=== PATIENT | male | born 1955 | race African-American/Black ===

== ENCOUNTER 2017-07-13 08:00 | Day surgery (SDC) | payer OTHER ==
[2017-07-14] MEDS ORDERED: HIP PAIN COCKTAIL (CEFUROXIME) INJ ×2 (07:30)
== END 2017-07-14 10:00 | disposition home or self-care (01) ==
LOC: REC 07-14 08:32 → SDS 07-14 10:00 → LAB 08:00 → SDS 07-14 10:00 → LAB 10:00
DX: M16.12 Unilateral primary osteoarthritis, left hip (principal); Z01.818 Encounter for other preprocedural examination (principal); Z53.9 Procedure and treatment not carried out, unspecified reason
CPT/HCPCS: 87081

== ENCOUNTER 2017-08-26 05:25 | Inpatient (IN) | payer OTHER ==
[2017-08-26] MEDS: LANSOPRAZOLE 30 MG CAP PO (06:19)
[2017-08-26] MEDS: DEXAMETHASONE 4 MG/ML 1 ML INJ IV (06:19)
[2017-08-26] MEDS: ONDANSETRON 4 MG INJ IV ×5 (06:19→20:51)
[2017-08-26] MEDS: ACETAMINOPHEN 1000MG/100ML IV 100 ML IVPB (06:19)
[2017-08-26] MEDS: oxyCODONE (CR) 10 MG TAB [oxyCONTIN] PO (06:20)
[2017-08-26] MEDS: LACTATED RINGER'S 1,000 ML IV* (06:20)
[2017-08-26] MEDS ORDERED: ROCURONIUM 50 MG INJ (07:37)
[2017-08-26] MEDS ORDERED: NEOSTIGMINE 3 MG/3 ML SYRINGE ×2 (07:37→10:28)
[2017-08-26] MEDS ORDERED: PROPOFOL 20 ML (07:37)
[2017-08-26] MEDS ORDERED: SUCCINYLCHOLINE CHLORIDE 100 MG/5 ML SYG IV (07:37)
[2017-08-26] MEDS ORDERED: LIDOCAINE 2% (SDV) 5 ML INJ (07:37)
[2017-08-26] MEDS ORDERED: GLYCOPYRROLATE 0.4 MG INJ ×3 (07:37→10:28)
[2017-08-26] MEDS ORDERED: MEPERIDINE 100 MG INJ (07:37)
[2017-08-26] MEDS ORDERED: BUPIVACAINE 0.75%/DEXT (SPINAL) 2 ML INJ (07:38)
[2017-08-26] MEDS ORDERED: morphine SULFATE/PF (10 MG/10 ML) INJ (07:38)
[2017-08-26] MEDS: TRANEXAMIC ACID 1,000 MG in NS 100 ML INTRA-OP X1 IVPB (07:45)
[2017-08-26] MEDS: CEFAZOLIN 2 GM/50 ML (PMX) 50 ML IVPB (07:58)
[2017-08-26] MEDS: TRANEXAMIC ACID 1,000 MG in NS 100 ML PRE-OP X1 IVPB ×2 (08:20→08:47)
[2017-08-26] MEDS: BACITRACIN 50000 UNITS INJ (08:42)
[2017-08-26] MEDS: POLYMYXIN B 500000 UNIT INJ (08:42)
[2017-08-26] MEDS: HIP PAIN COCKTAIL (CEFUROXIME) INJ (08:44)
[2017-08-26] MEDS ORDERED: FENTAnyl 50 MCG/ML VIAL (09:42)
[2017-08-26] MEDS ORDERED: CEFAZOLIN 1 GM INJ (10:36)
[2017-08-26] MEDS: SOD CHLORIDE 0.9% 1,000 ML IV ×2 (10:55→20:53)
[2017-08-26] MEDS ORDERED: ZOLPIDEM 5 MG TAB PO (11:00)
[2017-08-26] MEDS ORDERED: MAGNESIUM HYDROXIDE 30ML CUP PO (11:00)
[2017-08-26] MEDS ORDERED: NACL 0.9% 3 ML SYG IV (11:00)
[2017-08-26] MEDS ORDERED: oxyCODONE 5 MG TAB PO ×3 (11:00)
[2017-08-26] MEDS ORDERED: NALOXONE (0.4 MG/ML) INJ IV ×2 (11:00→11:30)
[2017-08-26] MEDS ORDERED: DIPHENHYDRAMINE 50 MG INJ IV ×2 (11:00→11:30)
[2017-08-26] MEDS ORDERED: TRIMETHOBENZAMIDE 100 MG/ML VIAL IM (11:00)
[2017-08-26] MEDS ORDERED: BISACODYL 10 MG SUPP PR (11:00)
[2017-08-26] MEDS ORDERED: NA PHOSPHATE/BIPHOS 133 ML ENEMA PR (11:00)
[2017-08-26] MEDS ORDERED: HYDROmorphONE 0.5 MG/0.5 ML SYG IV ×2 (11:30)
[2017-08-26] MEDS: ASPIRIN (EC) 325 MG TAB PO ×2 (11:53→20:42)
[2017-08-26] MEDS: DOCUSATE SODIUM 100 MG CAP PO (11:53)
[2017-08-26] MEDS: CEFAZOLIN 1 GM/50 ML (PMX) 50 ML IVPB ×2 (14:48→20:52)
[2017-08-26] MEDS ORDERED: LEVALBUTEROL (HFA) 15 GM INHALER INH (20:30)
[2017-08-26] MEDS: ATORVASTATIN 10 MG TAB PO (20:52)
[2017-08-27] MEDS: PANTOPRAZOLE (EC) 40 MG TAB PO (05:07)
[2017-08-27 05:08] LABS: ADD MAN DIFF? NO
[2017-08-27] MEDS: CEFAZOLIN 1 GM/50 ML (PMX) 50 ML IVPB (05:08)
[2017-08-27] MEDS: ONDANSETRON 4 MG INJ IV (05:08)
[2017-08-27 05:09] LABS: WHITE BLOOD COUNT 9.5 10^3/ul (4.8-10.8)
[2017-08-27 05:09] LABS: ABNORMAL IP MESSAGE 1; BASOPHILS % 0.1 % (0.0-2.0); HEMATOCRIT 34.8 % (42.0-52.0); HEMOGLOBIN 11.3 g/dl (14.0-18.0); LYMPHOCYTES # 0.6 10^3/ul (0.8-2.9); LYMPHOCYTES % 6.1 % (15.0-51.0); MEAN CORPUSCULAR HEMOGLOBIN 31.1 pg (29.0-33.0); MEAN CORPUSCULAR HGB CONC 32.5 g/dl (32.0-37.0); MEAN CORPUSCULAR VOLUME 95.9 fl (82.0-101.0); MEAN PLATELET VOLUME 10.1 fl (7.4-10.4); MONOCYTE # 0.6 10^3/ul (0.3-0.9); MONOCYTES % 6.6 % (0.0-11.0); NEUTROPHIL # 8.2 10^3/ul (1.6-7.5); NEUTROPHILS % 86.9 % (39.0-77.0); PLATELET COUNT 183 10^3/UL (140-415); POSITIVE DIFF @See below; RED BLOOD COUNT 3.63 10^6/ul (4.70-6.10); RED CELL DISTRIBUTION WIDTH 13.2 % (11.5-14.5)
[2017-08-27 05:19] LABS: HEMOGLOBIN A1C 5.7 % (0-5.9)
[2017-08-27 05:33] LABS: ALANINE AMINOTRANSFERASE 33 IU/L (13-69); ALBUMIN 3.8 g/dl (3.3-4.9); ALKALINE PHOSPHATASE 49 IU/L (42-121); ASPARTATE AMINO TRANSFERASE 55 IU/L (15-46); BILIRUBIN,INDIRECT 0.6 mg/dl (0-1.1); BILIRUBIN,TOTAL 0.6 mg/dl (0.2-1.3); MAGNESIUM 1.6 mg/dl (1.7-2.5); TOTAL PROTEIN 6.7 g/dl (6.1-8.1)
[2017-08-27 05:35] LABS: ANION GAP 15 (8-16); BLOOD UREA NITROGEN 22 mg/dl (7-20); CALCIUM 8.4 mg/dl (8.4-10.2); CARBON DIOXIDE 29 mmol/L (21-31); CHLORIDE 103 mmol/L (97-110); CREATININE 0.87 mg/dl (0.61-1.24); GLUCOSE 147 mg/dl (70-220); POTASSIUM 4.2 mmol/L (3.5-5.1); SODIUM 143 mmol/L (135-144)
[2017-08-27] MEDS ORDERED: PANTOPRAZOLE (EC) 40 MG TAB PO (06:00)
[2017-08-27] MEDS ORDERED: ZOLPIDEM 5 MG TAB PO (07:22)
[2017-08-27] MEDS ORDERED: TRIMETHOBENZAMIDE 100 MG/ML VIAL IM (07:22)
[2017-08-27] MEDS ORDERED: oxyCODONE 5 MG TAB PO ×2 (07:22)
[2017-08-27] MEDS ORDERED: DIPHENHYDRAMINE 50 MG INJ IV (07:22)
[2017-08-27] MEDS: FERROUS FUMARATE (SR) TAB PO ×2 (08:55→21:53)
[2017-08-27] MEDS: FLUTICASONE 0.05% 16 GM NAS SPRAY NASAL (08:55)
[2017-08-27] MEDS: ASPIRIN (EC) 325 MG TAB PO ×2 (08:56→21:54)
[2017-08-27] MEDS: LISINOPRIL 5 MG TAB PO (08:56)
[2017-08-27] MEDS: TRIAMTERENE/HCTZ (37.5/25) TAB PO (08:57)
[2017-08-27] MEDS: DOCUSATE SODIUM 100 MG CAP PO ×2 (08:57→21:53)
[2017-08-27] MEDS: CELECOXIB 200 MG CAP PO ×2 (08:58→21:53)
[2017-08-27] MEDS: oxyCODONE 5 MG TAB PO (08:58)
[2017-08-27] MEDS: BETHANECHOL 25 MG TAB PO (08:58)
[2017-08-27] MEDS: CHOLECALCIFEROL 1,000 UNIT TAB PO (08:59)
[2017-08-27] MEDS: SOD CHLORIDE 0.9% 1,000 ML IV (11:55)
[2017-08-27] MEDS: MAGNESIUM SULFATE 2 GM/50 ML 50 ML IVPB (16:04)
[2017-08-27] MEDS: ATORVASTATIN 10 MG TAB PO (21:53)
[2017-08-28] MEDS: SOD CHLORIDE 0.9% 1,000 ML IV ×2 (00:07→12:55)
[2017-08-28 05:37] LABS: WHITE BLOOD COUNT 8.3 10^3/ul (4.8-10.8)
[2017-08-28 05:37] LABS: ADD MAN DIFF? NO; BASOPHILS % 0.2 % (0.0-2.0); EOSINOPHILS % 0.1 % (0.0-7.0); HEMATOCRIT 30.9 % (42.0-52.0); LYMPHOCYTES # 1.4 10^3/ul (0.8-2.9); LYMPHOCYTES % 16.4 % (15.0-51.0); MEAN CORPUSCULAR HEMOGLOBIN 30.8 pg (29.0-33.0); MEAN CORPUSCULAR HGB CONC 32.4 g/dl (32.0-37.0); MEAN CORPUSCULAR VOLUME 95.1 fl (82.0-101.0); MEAN PLATELET VOLUME 10.2 fl (7.4-10.4); MONOCYTE # 0.7 10^3/ul (0.3-0.9); MONOCYTES % 7.9 % (0.0-11.0); NEUTROPHIL # 6.2 10^3/ul (1.6-7.5); NEUTROPHILS % 74.9 % (39.0-77.0); PLATELET COUNT 173 10^3/UL (140-415); RED BLOOD COUNT 3.25 10^6/ul (4.70-6.10); RED CELL DISTRIBUTION WIDTH 13.3 % (11.5-14.5)
[2017-08-28] MEDS: PANTOPRAZOLE (EC) 40 MG TAB PO (06:08)
[2017-08-28 06:20] LABS: ANION GAP 10 (8-16); BLOOD UREA NITROGEN 18 mg/dl (7-20); CALCIUM 8.3 mg/dl (8.4-10.2); CARBON DIOXIDE 32 mmol/L (21-31); CHLORIDE 102 mmol/L (97-110); CREATININE 1.05 mg/dl (0.61-1.24); GLUCOSE 116 mg/dl (70-220); POTASSIUM 4.2 mmol/L (3.5-5.1); SODIUM 140 mmol/L (135-144)
[2017-08-28 06:21] LABS: MAGNESIUM 2.1 mg/dl (1.7-2.5)
[2017-08-28] MEDS: ASPIRIN (EC) 325 MG TAB PO ×2 (09:24→20:48)
[2017-08-28] MEDS: CELECOXIB 200 MG CAP PO ×2 (09:24→20:48)
[2017-08-28] MEDS: CHOLECALCIFEROL 1,000 UNIT TAB PO (09:25)
[2017-08-28] MEDS: DOCUSATE SODIUM 100 MG CAP PO ×2 (09:25→21:00)
[2017-08-28] MEDS: FLUTICASONE 0.05% 16 GM NAS SPRAY NASAL (09:27)
[2017-08-28] MEDS: FERROUS FUMARATE (SR) TAB PO ×2 (09:28→20:48)
[2017-08-28] MEDS: TRIAMTERENE/HCTZ (37.5/25) TAB PO (11:54)
[2017-08-28] MEDS: LISINOPRIL 5 MG TAB PO (11:55)
[2017-08-28] MEDS: oxyCODONE 5 MG TAB PO ×2 (11:58→20:49)
[2017-08-28] MEDS: ATORVASTATIN 10 MG TAB PO (20:48)
[2017-08-29] MEDS: SOD CHLORIDE 0.9% 1,000 ML IV ×2 (01:25→13:55)
[2017-08-29 05:25] LABS: ADD MAN DIFF? NO
[2017-08-29 05:35] LABS: BASOPHILS % 0.2 % (0.0-2.0); EOSINOPHILS # 0.1 10^3/ul (0.0-0.5); EOSINOPHILS % 0.7 % (0.0-7.0); HEMATOCRIT 31.4 % (42.0-52.0); HEMOGLOBIN 10.7 g/dl (14.0-18.0); LYMPHOCYTES # 1.6 10^3/ul (0.8-2.9); LYMPHOCYTES % 17.6 % (15.0-51.0); MEAN CORPUSCULAR HGB CONC 34.1 g/dl (32.0-37.0); MEAN PLATELET VOLUME 10.1 fl (7.4-10.4); MONOCYTE # 0.8 10^3/ul (0.3-0.9); MONOCYTES % 8.9 % (0.0-11.0); NEUTROPHIL # 6.4 10^3/ul (1.6-7.5); NEUTROPHILS % 72.2 % (39.0-77.0); PLATELET COUNT 188 10^3/UL (140-415); RED BLOOD COUNT 3.34 10^6/ul (4.70-6.10); RED CELL DISTRIBUTION WIDTH 13.2 % (11.5-14.5)
[2017-08-29 05:35] LABS: WHITE BLOOD COUNT 8.9 10^3/ul (4.8-10.8)
[2017-08-29 05:57] LABS: ANION GAP 13 (8-16); BLOOD UREA NITROGEN 13 mg/dl (7-20); CALCIUM 8.4 mg/dl (8.4-10.2); CARBON DIOXIDE 31 mmol/L (21-31); CHLORIDE 101 mmol/L (97-110); CREATININE 0.84 mg/dl (0.61-1.24); GLUCOSE 117 mg/dl (70-220); POTASSIUM 3.6 mmol/L (3.5-5.1); SODIUM 141 mmol/L (135-144)
[2017-08-29] MEDS: PANTOPRAZOLE (EC) 40 MG TAB PO (06:20)
[2017-08-29] MEDS: oxyCODONE 5 MG TAB PO ×2 (06:20→10:35)
[2017-08-29] MEDS: ASPIRIN (EC) 325 MG TAB PO ×2 (10:15→21:13)
[2017-08-29] MEDS: LISINOPRIL 5 MG TAB PO (10:15)
[2017-08-29] MEDS: DOCUSATE SODIUM 100 MG CAP PO ×2 (10:15→21:00)
[2017-08-29] MEDS: CELECOXIB 200 MG CAP PO ×2 (10:15→21:13)
[2017-08-29] MEDS: CHOLECALCIFEROL 1,000 UNIT TAB PO (10:15)
[2017-08-29] MEDS: TRIAMTERENE/HCTZ (37.5/25) TAB PO (10:15)
[2017-08-29] MEDS: FERROUS FUMARATE (SR) TAB PO ×2 (10:15→21:13)
[2017-08-29] MEDS: FLUTICASONE 0.05% 16 GM NAS SPRAY NASAL (10:15)
[2017-08-29] MEDS: ATORVASTATIN 10 MG TAB PO (21:13)
[2017-08-30] MEDS: SOD CHLORIDE 0.9% 1,000 ML IV ×2 (02:25→12:17)
[2017-08-30 05:07] LABS: ADD MAN DIFF? NO
[2017-08-30 05:13] LABS: WHITE BLOOD COUNT 8.7 10^3/ul (4.8-10.8)
[2017-08-30 05:13] LABS: BASOPHILS % 0.3 % (0.0-2.0); EOSINOPHILS # 0.1 10^3/ul (0.0-0.5); EOSINOPHILS % 1.3 % (0.0-7.0); HEMATOCRIT 31.6 % (42.0-52.0); HEMOGLOBIN 10.6 g/dl (14.0-18.0); LYMPHOCYTES # 1.7 10^3/ul (0.8-2.9); LYMPHOCYTES % 19.2 % (15.0-51.0); MEAN CORPUSCULAR HEMOGLOBIN 31.5 pg (29.0-33.0); MEAN CORPUSCULAR HGB CONC 33.5 g/dl (32.0-37.0); MONOCYTE # 0.8 10^3/ul (0.3-0.9); MONOCYTES % 9.2 % (0.0-11.0); NEUTROPHIL # 6.1 10^3/ul (1.6-7.5); NEUTROPHILS % 69.4 % (39.0-77.0); PLATELET COUNT 214 10^3/UL (140-415); RED BLOOD COUNT 3.36 10^6/ul (4.70-6.10); RED CELL DISTRIBUTION WIDTH 13.2 % (11.5-14.5)
[2017-08-30] MEDS: PANTOPRAZOLE (EC) 40 MG TAB PO (05:34)
[2017-08-30 05:40] LABS: ANION GAP 11 (8-16); BLOOD UREA NITROGEN 11 mg/dl (7-20); CALCIUM 8.8 mg/dl (8.4-10.2); CARBON DIOXIDE 34 mmol/L (21-31); CHLORIDE 99 mmol/L (97-110); CREATININE 0.94 mg/dl (0.61-1.24); GLUCOSE 133 mg/dl (70-220); POTASSIUM 3.9 mmol/L (3.5-5.1); SODIUM 140 mmol/L (135-144)
[2017-08-30] MEDS: FLUTICASONE 0.05% 16 GM NAS SPRAY NASAL (08:43)
[2017-08-30] MEDS: CHOLECALCIFEROL 1,000 UNIT TAB PO (08:44)
[2017-08-30] MEDS: CELECOXIB 200 MG CAP PO ×2 (08:44→20:11)
[2017-08-30] MEDS: TRIAMTERENE/HCTZ (37.5/25) TAB PO (08:45)
[2017-08-30] MEDS: LISINOPRIL 5 MG TAB PO (08:45)
[2017-08-30] MEDS: ASPIRIN (EC) 325 MG TAB PO ×2 (08:45→20:11)
[2017-08-30] MEDS: FERROUS FUMARATE (SR) TAB PO ×2 (08:45→20:11)
[2017-08-30] MEDS: oxyCODONE 5 MG TAB PO ×2 (11:31→18:29)
[2017-08-30] MEDS: ATORVASTATIN 10 MG TAB PO (20:11)
[2017-08-31] MEDS: SOD CHLORIDE 0.9% 1,000 ML IV ×2 (03:25→15:55)
[2017-08-31 05:17] LABS: ADD MAN DIFF? NO
[2017-08-31 05:22] LABS: WHITE BLOOD COUNT 7.4 10^3/ul (4.8-10.8)
[2017-08-31 05:22] LABS: BASOPHILS % 0.3 % (0.0-2.0); EOSINOPHILS # 0.1 10^3/ul (0.0-0.5); EOSINOPHILS % 1.9 % (0.0-7.0); HEMOGLOBIN 10.8 g/dl (14.0-18.0); LYMPHOCYTES # 1.7 10^3/ul (0.8-2.9); LYMPHOCYTES % 22.5 % (15.0-51.0); MEAN CORPUSCULAR HEMOGLOBIN 31.6 pg (29.0-33.0); MEAN CORPUSCULAR HGB CONC 33.8 g/dl (32.0-37.0); MEAN CORPUSCULAR VOLUME 93.6 fl (82.0-101.0); MEAN PLATELET VOLUME 9.6 fl (7.4-10.4); MONOCYTE # 0.9 10^3/ul (0.3-0.9); MONOCYTES % 11.7 % (0.0-11.0); NEUTROPHIL # 4.6 10^3/ul (1.6-7.5); NEUTROPHILS % 62.5 % (39.0-77.0); PLATELET COUNT 245 10^3/UL (140-415); RED BLOOD COUNT 3.42 10^6/ul (4.70-6.10); RED CELL DISTRIBUTION WIDTH 13.3 % (11.5-14.5)
[2017-08-31] MEDS: PANTOPRAZOLE (EC) 40 MG TAB PO (05:34)
[2017-08-31 05:47] LABS: ANION GAP 14 (8-16); BLOOD UREA NITROGEN 14 mg/dl (7-20); CALCIUM 8.8 mg/dl (8.4-10.2); CARBON DIOXIDE 32 mmol/L (21-31); CHLORIDE 99 mmol/L (97-110); CREATININE 0.86 mg/dl (0.61-1.24); GLUCOSE 122 mg/dl (70-220); POTASSIUM 3.8 mmol/L (3.5-5.1); SODIUM 141 mmol/L (135-144)
[2017-08-31] MEDS: FLUTICASONE 0.05% 16 GM NAS SPRAY NASAL (08:33)
[2017-08-31] MEDS: ASPIRIN (EC) 325 MG TAB PO ×2 (08:34→20:17)
[2017-08-31] MEDS: CHOLECALCIFEROL 1,000 UNIT TAB PO (08:34)
[2017-08-31] MEDS: FERROUS FUMARATE (SR) TAB PO ×2 (08:34→20:17)
[2017-08-31] MEDS: TRIAMTERENE/HCTZ (37.5/25) TAB PO (08:35)
[2017-08-31] MEDS: CELECOXIB 200 MG CAP PO ×2 (08:35→20:17)
[2017-08-31] MEDS: LISINOPRIL 5 MG TAB PO (08:35)
[2017-08-31] MEDS: oxyCODONE 5 MG TAB PO ×2 (08:51→16:23)
[2017-08-31] MEDS: ATORVASTATIN 10 MG TAB PO (20:17)
[2017-09-01] MEDS: SOD CHLORIDE 0.9% 1,000 ML IV ×2 (04:25→15:48)
[2017-09-01] MEDS: PANTOPRAZOLE (EC) 40 MG TAB PO (05:06)
[2017-09-01 05:07] LABS: ADD MAN DIFF? NO
[2017-09-01 05:10] LABS: BASOPHILS % 0.2 % (0.0-2.0); EOSINOPHILS # 0.1 10^3/ul (0.0-0.5); EOSINOPHILS % 1.3 % (0.0-7.0); HEMATOCRIT 32.9 % (42.0-52.0); HEMOGLOBIN 10.9 g/dl (14.0-18.0); LYMPHOCYTES # 1.7 10^3/ul (0.8-2.9); LYMPHOCYTES % 20.1 % (15.0-51.0); MEAN CORPUSCULAR HEMOGLOBIN 31.2 pg (29.0-33.0); MEAN CORPUSCULAR HGB CONC 33.1 g/dl (32.0-37.0); MEAN CORPUSCULAR VOLUME 94.3 fl (82.0-101.0); MEAN PLATELET VOLUME 9.2 fl (7.4-10.4); MONOCYTE # 0.9 10^3/ul (0.3-0.9); NEUTROPHIL # 5.7 10^3/ul (1.6-7.5); NEUTROPHILS % 67.1 % (39.0-77.0); PLATELET COUNT 268 10^3/UL (140-415); RED BLOOD COUNT 3.49 10^6/ul (4.70-6.10); RED CELL DISTRIBUTION WIDTH 13.5 % (11.5-14.5)
[2017-09-01 05:10] LABS: WHITE BLOOD COUNT 8.5 10^3/ul (4.8-10.8)
[2017-09-01] MEDS: oxyCODONE 5 MG TAB PO ×2 (05:10→16:56)
[2017-09-01 05:39] LABS: ANION GAP 13 (8-16); BLOOD UREA NITROGEN 20 mg/dl (7-20); CALCIUM 8.9 mg/dl (8.4-10.2); CARBON DIOXIDE 35 mmol/L (21-31); CHLORIDE 99 mmol/L (97-110); GLUCOSE 113 mg/dl (70-220); SODIUM 143 mmol/L (135-144)
[2017-09-01] MEDS: FLUTICASONE 0.05% 16 GM NAS SPRAY NASAL (08:36)
[2017-09-01] MEDS: ASPIRIN (EC) 325 MG TAB PO ×2 (08:36→20:08)
[2017-09-01] MEDS: CELECOXIB 200 MG CAP PO ×2 (08:36→20:08)
[2017-09-01] MEDS: FERROUS FUMARATE (SR) TAB PO ×2 (08:36→20:08)
[2017-09-01] MEDS: CHOLECALCIFEROL 1,000 UNIT TAB PO (08:37)
[2017-09-01] MEDS: LISINOPRIL 5 MG TAB PO (08:39)
[2017-09-01] MEDS: TRIAMTERENE/HCTZ (37.5/25) TAB PO (08:39)
[2017-09-01] MEDS: ATORVASTATIN 10 MG TAB PO (20:08)
[2017-09-02 05:20] LABS: ADD MAN DIFF? NO
[2017-09-02] MEDS: SOD CHLORIDE 0.9% 1,000 ML IV ×2 (05:25→11:48)
[2017-09-02 05:28] LABS: WHITE BLOOD COUNT 8.7 10^3/ul (4.8-10.8)
[2017-09-02 05:28] LABS: BASOPHILS % 0.3 % (0.0-2.0); EOSINOPHILS # 0.1 10^3/ul (0.0-0.5); HEMATOCRIT 31.8 % (42.0-52.0); HEMOGLOBIN 10.5 g/dl (14.0-18.0); LYMPHOCYTES # 1.8 10^3/ul (0.8-2.9); MEAN CORPUSCULAR HEMOGLOBIN 31.2 pg (29.0-33.0); MEAN CORPUSCULAR VOLUME 94.4 fl (82.0-101.0); MEAN PLATELET VOLUME 9.5 fl (7.4-10.4); MONOCYTE # 0.9 10^3/ul (0.3-0.9); MONOCYTES % 10.3 % (0.0-11.0); NEUTROPHIL # 5.7 10^3/ul (1.6-7.5); NEUTROPHILS % 65.1 % (39.0-77.0); PLATELET COUNT 303 10^3/UL (140-415); RED BLOOD COUNT 3.37 10^6/ul (4.70-6.10); RED CELL DISTRIBUTION WIDTH 13.5 % (11.5-14.5)
[2017-09-02 05:45] LABS: ANION GAP 14 (8-16); BLOOD UREA NITROGEN 18 mg/dl (7-20); CALCIUM 8.8 mg/dl (8.4-10.2); CARBON DIOXIDE 32 mmol/L (21-31); CHLORIDE 99 mmol/L (97-110); CREATININE 0.94 mg/dl (0.61-1.24); GLUCOSE 124 mg/dl (70-220); POTASSIUM 4.2 mmol/L (3.5-5.1); SODIUM 141 mmol/L (135-144)
[2017-09-02] MEDS: PANTOPRAZOLE (EC) 40 MG TAB PO (06:12)
[2017-09-02] MEDS: FLUTICASONE 0.05% 16 GM NAS SPRAY NASAL (08:27)
[2017-09-02] MEDS: CHOLECALCIFEROL 1,000 UNIT TAB PO (08:28)
[2017-09-02] MEDS: CELECOXIB 200 MG CAP PO ×2 (08:28→20:31)
[2017-09-02] MEDS: ASPIRIN (EC) 325 MG TAB PO ×2 (08:28→20:31)
[2017-09-02] MEDS: FERROUS FUMARATE (SR) TAB PO ×2 (08:28→20:30)
[2017-09-02] MEDS: LISINOPRIL 5 MG TAB PO (08:29)
[2017-09-02] MEDS: TRIAMTERENE/HCTZ (37.5/25) TAB PO (08:29)
[2017-09-02] MEDS: oxyCODONE 5 MG TAB PO ×2 (08:33→14:44)
[2017-09-02] MEDS: SENNA/DOCUSATE NA (8.6MG/50MG) TAB PO (20:30)
[2017-09-02] MEDS: ATORVASTATIN 10 MG TAB PO (20:31)
[2017-09-03] MEDS: oxyCODONE 5 MG TAB PO (01:06)
[2017-09-03] MEDS: PANTOPRAZOLE (EC) 40 MG TAB PO (05:41)
[2017-09-03] MEDS: SOD CHLORIDE 0.9% 1,000 ML IV ×2 (05:43→18:55)
[2017-09-03] MEDS: FERROUS FUMARATE (SR) TAB PO ×2 (08:37→21:09)
[2017-09-03] MEDS: CELECOXIB 200 MG CAP PO ×2 (08:38→21:09)
[2017-09-03] MEDS: CHOLECALCIFEROL 1,000 UNIT TAB PO (08:38)
[2017-09-03] MEDS: ASPIRIN (EC) 325 MG TAB PO ×2 (08:38→21:09)
[2017-09-03] MEDS: TRIAMTERENE/HCTZ (37.5/25) TAB PO (08:38)
[2017-09-03] MEDS: LISINOPRIL 5 MG TAB PO (08:38)
[2017-09-03] MEDS: FLUTICASONE 0.05% 16 GM NAS SPRAY NASAL (09:00)
[2017-09-03] MEDS: ATORVASTATIN 10 MG TAB PO (21:09)
[2017-09-04] MEDS: PANTOPRAZOLE (EC) 40 MG TAB PO (05:58)
[2017-09-04] MEDS: SOD CHLORIDE 0.9% 1,000 ML IV ×2 (07:25→19:55)
[2017-09-04] MEDS: ASPIRIN (EC) 325 MG TAB PO ×2 (09:17→20:44)
[2017-09-04] MEDS: CHOLECALCIFEROL 1,000 UNIT TAB PO (09:17)
[2017-09-04] MEDS: CELECOXIB 200 MG CAP PO ×2 (09:17→20:44)
[2017-09-04] MEDS: TRIAMTERENE/HCTZ (37.5/25) TAB PO (09:18)
[2017-09-04] MEDS: LISINOPRIL 5 MG TAB PO (09:18)
[2017-09-04] MEDS: FLUTICASONE 0.05% 16 GM NAS SPRAY NASAL (09:18)
[2017-09-04] MEDS: FERROUS FUMARATE (SR) TAB PO ×2 (09:20→20:44)
[2017-09-04] MEDS: ATORVASTATIN 10 MG TAB PO (20:44)
[2017-09-04] MEDS: oxyCODONE 5 MG TAB PO (20:48)
[2017-09-05] MEDS: PANTOPRAZOLE (EC) 40 MG TAB PO (05:55)
[2017-09-05] MEDS: ASPIRIN (EC) 325 MG TAB PO ×2 (08:51→20:35)
[2017-09-05] MEDS: CELECOXIB 200 MG CAP PO ×2 (08:51→20:33)
[2017-09-05] MEDS: FERROUS FUMARATE (SR) TAB PO ×2 (08:51→20:33)
[2017-09-05] MEDS: TRIAMTERENE/HCTZ (37.5/25) TAB PO (08:52)
[2017-09-05] MEDS: CHOLECALCIFEROL 1,000 UNIT TAB PO (08:52)
[2017-09-05] MEDS: LISINOPRIL 5 MG TAB PO (08:53)
[2017-09-05] MEDS: FLUTICASONE 0.05% 16 GM NAS SPRAY NASAL (08:53)
[2017-09-05] MEDS: ATORVASTATIN 10 MG TAB PO (20:33)
[2017-09-05] MEDS: SENNA/DOCUSATE NA (8.6MG/50MG) TAB PO (20:33)
[2017-09-05] MEDS: oxyCODONE 5 MG TAB PO (20:34)
[2017-09-06] MEDS: PANTOPRAZOLE (EC) 40 MG TAB PO (06:00)
[2017-09-06] MEDS: FLUTICASONE 0.05% 16 GM NAS SPRAY NASAL (09:32)
[2017-09-06] MEDS: CELECOXIB 200 MG CAP PO ×2 (09:33→20:27)
[2017-09-06] MEDS: FERROUS FUMARATE (SR) TAB PO ×2 (09:33→20:26)
[2017-09-06] MEDS: TRIAMTERENE/HCTZ (37.5/25) TAB PO (09:33)
[2017-09-06] MEDS: ASPIRIN (EC) 325 MG TAB PO ×2 (09:33→20:27)
[2017-09-06] MEDS: LISINOPRIL 5 MG TAB PO (09:34)
[2017-09-06] MEDS: CHOLECALCIFEROL 1,000 UNIT TAB PO (09:34)
[2017-09-06] MEDS: oxyCODONE 5 MG TAB PO (17:47)
[2017-09-06] MEDS: ATORVASTATIN 10 MG TAB PO (20:27)
[2017-09-07] MEDS: PANTOPRAZOLE (EC) 40 MG TAB PO (06:01)
[2017-09-07] MEDS: FLUTICASONE 0.05% 16 GM NAS SPRAY NASAL (09:00)
[2017-09-07] MEDS: TRIAMTERENE/HCTZ (37.5/25) TAB PO (09:41)
[2017-09-07] MEDS: LISINOPRIL 5 MG TAB PO (09:41)
[2017-09-07] MEDS: CELECOXIB 200 MG CAP PO ×2 (09:41→20:31)
[2017-09-07] MEDS: FERROUS FUMARATE (SR) TAB PO ×2 (09:41→20:31)
[2017-09-07] MEDS: CHOLECALCIFEROL 1,000 UNIT TAB PO (09:42)
[2017-09-07] MEDS: ASPIRIN (EC) 325 MG TAB PO ×2 (09:42→20:31)
[2017-09-07] MEDS: ATORVASTATIN 10 MG TAB PO (20:31)
[2017-09-07] MEDS: oxyCODONE 5 MG TAB PO (20:31)
[2017-09-08] MEDS: PANTOPRAZOLE (EC) 40 MG TAB PO (06:08)
[2017-09-08] MEDS: FERROUS FUMARATE (SR) TAB PO (10:05)
[2017-09-08] MEDS: FLUTICASONE 0.05% 16 GM NAS SPRAY NASAL (10:06)
[2017-09-08] MEDS: ASPIRIN (EC) 325 MG TAB PO (10:06)
[2017-09-08] MEDS: CELECOXIB 200 MG CAP PO (10:06)
[2017-09-08] MEDS: TRIAMTERENE/HCTZ (37.5/25) TAB PO (10:07)
[2017-09-08] MEDS: LISINOPRIL 5 MG TAB PO (10:07)
[2017-09-08] MEDS: CHOLECALCIFEROL 1,000 UNIT TAB PO (10:07)
== END 2017-09-08 14:33 | disposition home health service (06) | DRG 470 ==
LOC: REC 05:25 → MS1 12:51
PROC: 0SRB04A Replacement of Left Hip Joint with Ceramic on Polyethylene Synthetic Substitute, Uncemented, Open Approach (ICD-10-PCS; principal; 2017-08-26 07:30)
PROC: 8E0YXBZ Computer Assisted Procedure of Lower Extremity (ICD-10-PCS; 2017-08-26 07:30)
DX: M16.12 Unilateral primary osteoarthritis, left hip (principal); C46.9 Kaposi's sarcoma, unspecified; I10 Essential (primary) hypertension; J45.909 Unspecified asthma, uncomplicated; Z59.0 Homelessness; E78.00 Pure hypercholesterolemia, unspecified
CPT/HCPCS: 72170; 73500; 73510; 73530; 80048; 80076; 83036; 83735; 85025; 87081; 88304; 88311; 97110; 97116; 97161; 97530